=== PATIENT | female | born 1955 | race Caucasian/White ===

== ENCOUNTER 2018-04-09 07:29 | Inpatient (IN) | payer BC ==
[~2018-04-09 07:29] MED LIST: LIDOCAINE 2% (SDV) 5 ML INJ; PROPOFOL 200 MG INJ
[2018-04-09] MEDS: oxyCODONE (CR) 10 MG TAB [oxyCONTIN] PO (10:05)
[2018-04-09] MEDS: ACETAMINOPHEN 1000MG/100ML IV 100 ML IVPB (10:22)
[2018-04-09] MEDS: ONDANSETRON 4 MG INJ IV ×4 (10:23→23:14)
[2018-04-09] MEDS: DEXAMETHASONE 4 MG/ML 1 ML INJ IV (10:23)
[2018-04-09] MEDS ORDERED: NACL 0.9% 3 ML SYG IV (11:00)
[2018-04-09] MEDS ORDERED: oxyCODONE 5 MG TAB PO (11:00)
[2018-04-09] MEDS ORDERED: BISACODYL 10 MG SUPP PR (11:00)
[2018-04-09] MEDS ORDERED: SENNA/DOCUSATE NA (8.6MG/50MG) TAB PO (11:00)
[2018-04-09] MEDS ORDERED: NALOXONE (0.4 MG/ML) INJ IV (11:00)
[2018-04-09] MEDS ORDERED: BETHANECHOL 25 MG TAB PO (11:00)
[2018-04-09] MEDS ORDERED: MAGNESIUM HYDROXIDE 30ML CUP PO (11:00)
[2018-04-09] MEDS ORDERED: NA PHOSPHATE/BIPHOS 133 ML ENEMA PR (11:00)
[2018-04-09] MEDS ORDERED: DIPHENHYDRAMINE 50 MG INJ IV (11:00)
[2018-04-09] MEDS ORDERED: BUPIVACAINE 0.75%/DEXT (SPINAL) 2 ML INJ (11:16)
[2018-04-09] MEDS ORDERED: morphine SULFATE/PF (10 MG/10 ML) INJ (11:16)
[2018-04-09] MEDS: TRANEXAMIC ACID 1,000 MG in NS 100 ML INTRA-OP X1 IVPB ×3 (12:08→13:20)
[2018-04-09] MEDS: BACITRACIN 50000 UNITS INJ IRR (12:37)
[2018-04-09] MEDS: POLYMYXIN B 500000 UNIT INJ (12:37)
[2018-04-09] MEDS ORDERED: PHENYLephrine (100 MCG/ML) 5ML SYG (13:01)
[2018-04-09] MEDS ORDERED: ROCURONIUM 50 MG INJ (13:02)
[2018-04-09] MEDS ORDERED: SUGAMMADEX SODIUM 200 MG/2 ML VIAL IV (13:02)
[2018-04-09] MEDS ORDERED: CEFAZOLIN 1 GM INJ (13:02)
[2018-04-09] MEDS ORDERED: SUCCINYLCHOLINE CHLORIDE 100 MG/5 ML SYG IV (13:02)
[2018-04-09] MEDS ORDERED: HYDROmorphONE 1 MG/5 ML IV SYRINGE IV (13:30)
[2018-04-09] MEDS ORDERED: OXYCODONE/ACETAMINOPHEN (5/325) TAB PO (13:30)
[2018-04-09] MEDS ORDERED: ALBUTEROL 0.083% (NEB) 2.5 MG/3 ML AMP HHN (13:30)
[2018-04-09] MEDS ORDERED: FENTAnyl 50 MCG/ML VIAL IV ×2 (13:30)
[2018-04-09] MEDS: HIP PAIN COCKTAIL (CEFUROXIME) INJ ×2 (13:50→17:36)
[2018-04-09] MEDS ORDERED: FENTAnyl 50 MCG/ML VIAL ×3 (14:02→14:06)
[2018-04-09] MEDS ORDERED: HYDROmorphONE 2 MG/ML SYG ×3 (14:10→14:16)
[2018-04-09] MEDS: MEPERIDINE 25 MG INJ IV (14:32)
[2018-04-09] MEDS: DIPHENHYDRAMINE 50 MG INJ IV (14:33)
[2018-04-09] MEDS: HYDROmorphONE 1 MG/5 ML IV SYRINGE IV ×2 (14:40→15:27)
[2018-04-09] MEDS ORDERED: HYDROmorphONE 1 MG/ML SYG IV (15:00)
[2018-04-09] MEDS: ASPIRIN (EC) 325 MG TAB PO ×2 (15:13→23:23)
[2018-04-09] MEDS: DOCUSATE SODIUM 100 MG CAP PO (15:13)
[2018-04-09] MEDS: KETOROLAC 30 MG INJ IV (15:14)
[2018-04-09] MEDS: CEFAZOLIN 1 GM/50 ML (PMX) 50 ML IVPB ×2 (15:14→23:14)
[2018-04-09] MEDS: TRANEXAMIC ACID 1,000 MG in NS 100 ML PRE-OP X1 IVPB (16:00)
[2018-04-09] MEDS: LACTATED RINGER'S 1,000 ML IV* (16:00)
[2018-04-09] MEDS: oxyCODONE 5 MG TAB PO ×3 (16:40→23:24)
[2018-04-09] MEDS: LANSOPRAZOLE 30 MG CAP PO (17:36)
[2018-04-09] MEDS: SOD CHLORIDE 0.9% 1,000 ML IV ×2 (18:16→23:15)
[2018-04-09] MEDS: METHADONE 10 MG TAB PO (23:00)
[2018-04-10] MEDS: oxyCODONE 5 MG TAB PO ×2 (04:59→14:21)
[2018-04-10] MEDS: ONDANSETRON 4 MG INJ IV (05:00)
[2018-04-10 05:18] LABS: ADD MAN DIFF? NO
[2018-04-10 05:24] LABS: WHITE BLOOD COUNT 8.7 10^3/ul (4.8-10.8)
[2018-04-10 05:24] LABS: BASOPHILS % 0.1 % (0.0-2.0); HEMATOCRIT 25.5 % (37.0-47.0); HEMOGLOBIN 8.7 g/dl (12.0-16.0); LYMPHOCYTES # 2.1 10^3/ul (0.8-2.9); LYMPHOCYTES % 23.7 % (15.0-51.0); MEAN CORPUSCULAR HEMOGLOBIN 32.6 pg (29.0-33.0); MEAN CORPUSCULAR HGB CONC 34.1 g/dl (32.0-37.0); MEAN CORPUSCULAR VOLUME 95.5 fl (82.0-101.0); MONOCYTE # 1.2 10^3/ul (0.3-0.9); MONOCYTES % 13.3 % (0.0-11.0); NEUTROPHIL # 5.5 10^3/ul (1.6-7.5); NEUTROPHILS % 62.7 % (39.0-77.0); NUCLEATED RED BLOOD CELLS% 0.2 /100WBC (0.0-0.0); PLATELET COUNT 240 10^3/UL (140-415); RED BLOOD COUNT 2.67 10^6/ul (4.20-5.40); RED CELL DISTRIBUTION WIDTH 13.2 % (11.5-14.5)
[2018-04-10 05:48] LABS: PHOSPHORUS 3.1 mg/dl (2.5-4.9)
[2018-04-10 05:48] LABS: MAGNESIUM 1.8 mg/dl (1.7-2.5)
[2018-04-10 05:49] LABS: ANION GAP 10 (8-16); BLOOD UREA NITROGEN 17 mg/dl (7-20); CALCIUM 7.5 mg/dl (8.4-10.2); CARBON DIOXIDE 24 mmol/L (21-31); CHLORIDE 110 mmol/L (97-110); CREATININE 0.56 mg/dl (0.44-1.00); GLUCOSE 122 mg/dl (70-220); POTASSIUM 4.2 mmol/L (3.5-5.1); SODIUM 140 mmol/L (135-144)
[2018-04-10] MEDS: CEFAZOLIN 1 GM/50 ML (PMX) 50 ML IVPB (06:28)
[2018-04-10] MEDS: PANTOPRAZOLE (EC) 40 MG TAB PO (06:28)
[2018-04-10] MEDS: SOD CHLORIDE 0.9% 1,000 ML IV (06:28)
[2018-04-10] MEDS ORDERED: LISINOPRIL 20 MG TAB PO (09:00)
[2018-04-10] MEDS ORDERED: [UNRECOGNIZED DRUG - REMARK] XX (09:30)
[2018-04-10] MEDS: DOCUSATE SODIUM 100 MG CAP PO ×2 (09:37→21:20)
[2018-04-10] MEDS: FERROUS FUMARATE (SR) TAB PO ×2 (09:37→21:20)
[2018-04-10] MEDS: CELECOXIB 200 MG CAP PO ×2 (09:37→21:20)
[2018-04-10] MEDS: METHADONE 10 MG TAB PO ×2 (09:38→21:21)
[2018-04-10] MEDS: ASPIRIN (EC) 325 MG TAB PO ×2 (09:38→21:20)
[2018-04-10] MEDS: HYDROmorphONE 2 MG/ML SYG IV ×2 (15:24→19:14)
[2018-04-11] MEDS: SOD CHLORIDE 0.9% 1,000 ML IV ×2 (00:15→12:45)
[2018-04-11] MEDS: HYDROmorphONE 2 MG/ML SYG IV ×2 (00:21→04:20)
[2018-04-11] MEDS: PANTOPRAZOLE (EC) 40 MG TAB PO (04:23)
[2018-04-11 05:35] LABS: ADD MAN DIFF? NO
[2018-04-11 05:39] LABS: BASOPHILS % 0.4 % (0.0-2.0); EOSINOPHILS # 0.2 10^3/ul (0.0-0.5); EOSINOPHILS % 2.5 % (0.0-7.0); HEMATOCRIT 23.5 % (37.0-47.0); HEMOGLOBIN 7.8 g/dl (12.0-16.0); LYMPHOCYTES # 3.4 10^3/ul (0.8-2.9); LYMPHOCYTES % 40.7 % (15.0-51.0); MEAN CORPUSCULAR HEMOGLOBIN 32.9 pg (29.0-33.0); MEAN CORPUSCULAR HGB CONC 33.2 g/dl (32.0-37.0); MEAN CORPUSCULAR VOLUME 99.2 fl (82.0-101.0); MEAN PLATELET VOLUME 10.4 fl (7.4-10.4); MONOCYTES % 11.9 % (0.0-11.0); NEUTROPHIL # 3.6 10^3/ul (1.6-7.5); NEUTROPHILS % 44.1 % (39.0-77.0); PLATELET COUNT 217 10^3/UL (140-415); RED BLOOD COUNT 2.37 10^6/ul (4.20-5.40); RED CELL DISTRIBUTION WIDTH 13.5 % (11.5-14.5)
[2018-04-11 05:39] LABS: WHITE BLOOD COUNT 8.3 10^3/ul (4.8-10.8)
[2018-04-11 06:21] LABS: ANION GAP 7 (8-16); BLOOD UREA NITROGEN 17 mg/dl (7-20); CALCIUM 8.1 mg/dl (8.4-10.2); CARBON DIOXIDE 28 mmol/L (21-31); CHLORIDE 109 mmol/L (97-110); CREATININE 0.68 mg/dl (0.44-1.00); GLUCOSE 98 mg/dl (70-220); POTASSIUM 4.1 mmol/L (3.5-5.1); SODIUM 140 mmol/L (135-144)
[2018-04-11] MEDS: FERROUS FUMARATE (SR) TAB PO (09:18)
[2018-04-11] MEDS: CELECOXIB 200 MG CAP PO (09:18)
[2018-04-11] MEDS: ASPIRIN (EC) 325 MG TAB PO (09:18)
[2018-04-11] MEDS: METHADONE 10 MG TAB PO (09:19)
[2018-04-11] MEDS: HYDROmorphONE 1 MG/ML SYG IV ×2 (09:22→16:01)
[2018-04-11] MEDS: DOCUSATE SODIUM 100 MG CAP PO (13:40)
== END 2018-04-11 18:10 | disposition home health service (06) | DRG 470 ==
LOC: REC 07:29 → MS1 15:55
PROC: 0SRB04A Replacement of Left Hip Joint with Ceramic on Polyethylene Synthetic Substitute, Uncemented, Open Approach (ICD-10-PCS; principal; 2018-04-09 11:00)
DX: M16.12 Unilateral primary osteoarthritis, left hip (principal); F11.20 Opioid dependence, uncomplicated; I10 Essential (primary) hypertension; E66.9 Obesity, unspecified; Z68.29 Body mass index [BMI] 29.0-29.9, adult; G89.29 Other chronic pain
CPT/HCPCS: 72170; 73500; 73530; 80048; 83735; 84100; 85025; 86850; 86900; 86901; 86920; 87081; 87086; 88304; 88311; 97110; 97116; 97162; 97167; 97530; 97535

== ENCOUNTER 2018-08-13 05:39 | Inpatient (IN) | payer BC ==
[2018-08-13] MEDS: ONDANSETRON 4 MG INJ IV ×4 (06:30→20:21)
[2018-08-13] MEDS: DEXAMETHASONE 4 MG/ML 1 ML INJ IV (06:30)
[2018-08-13] MEDS: LACTATED RINGER'S 1,000 ML IV* (06:31)
[2018-08-13] MEDS: ACETAMINOPHEN 500 MG TAB PO (06:31)
[2018-08-13] MEDS: oxyCODONE (CR) 10 MG TAB [oxyCONTIN] PO (06:31)
[2018-08-13] MEDS: LANSOPRAZOLE 30 MG CAP PO (06:31)
[2018-08-13] MEDS ORDERED: LIDOCAINE 2% (SDV) 5 ML INJ (07:00)
[2018-08-13] MEDS ORDERED: DESFLURANE 15 MIN (07:00)
[2018-08-13] MEDS ORDERED: BUPIVACAINE 0.75%/DEXT (SPINAL) 2 ML INJ (07:00)
[2018-08-13] MEDS ORDERED: PROPOFOL 20 ML (07:14)
[2018-08-13] MEDS ORDERED: GLYCOPYRROLATE 0.4 MG INJ (07:14)
[2018-08-13] MEDS ORDERED: CEFAZOLIN 1 GM INJ (07:14)
[2018-08-13] MEDS ORDERED: ROCURONIUM 50 MG INJ (07:14)
[2018-08-13] MEDS ORDERED: NEOSTIGMINE 3 MG/3 ML SYRINGE (07:14)
[2018-08-13] MEDS ORDERED: DEXAMETHASONE 4 MG/ML 1 ML INJ (07:18)
[2018-08-13] MEDS ORDERED: FENTAnyl 50 MCG/ML VIAL (07:18)
[2018-08-13] MEDS ORDERED: ONDANSETRON 4 MG INJ (07:18)
[2018-08-13] MEDS ORDERED: MIDAZOLAM 1 MG/ML 2 ML INJ (07:18)
[2018-08-13] MEDS ORDERED: morphine SULFATE/PF (10 MG/10 ML) INJ (07:20)
[2018-08-13] MEDS ORDERED: EPINEPHrine 1 MG INJ (07:21)
[2018-08-13] MEDS ORDERED: NA PHOSPHATE/BIPHOS 133 ML ENEMA PR (07:30)
[2018-08-13] MEDS ORDERED: BETHANECHOL 25 MG TAB PO (07:30)
[2018-08-13] MEDS ORDERED: DIPHENHYDRAMINE 50 MG INJ IV (07:30)
[2018-08-13] MEDS ORDERED: SENNA/DOCUSATE NA (8.6MG/50MG) TAB PO (07:30)
[2018-08-13] MEDS ORDERED: BISACODYL 10 MG SUPP PR (07:30)
[2018-08-13] MEDS: TRANEXAMIC ACID 1,000 MG in NS 100 ML PRE-OP X1 IVPB (07:30)
[2018-08-13] MEDS ORDERED: oxyCODONE 5 MG TAB PO ×2 (07:30)
[2018-08-13] MEDS ORDERED: NALOXONE (0.4 MG/ML) INJ IV (07:30)
[2018-08-13] MEDS ORDERED: NACL 0.9% 3 ML SYG IV ×2 (07:30→12:30)
[2018-08-13] MEDS: CEFAZOLIN 1 GM/50 ML (PMX) 50 ML IVPB ×3 (07:30→18:54)
[2018-08-13] MEDS ORDERED: MAGNESIUM HYDROXIDE 30ML CUP PO (07:30)
[2018-08-13] MEDS: TRANEXAMIC ACID 1,000 MG in NS 100 ML INTRA-OP X1 IVPB (08:30)
[2018-08-13] MEDS: POLYMYXIN B 500000 UNIT INJ (09:23)
[2018-08-13] MEDS: BACITRACIN 50000 UNITS INJ (09:23)
[2018-08-13] MEDS: DOCUSATE SODIUM 100 MG CAP PO (10:32)
[2018-08-13] MEDS: ASPIRIN 81 MG TAB PO ×2 (10:32→20:19)
[2018-08-13] MEDS: SOD CHLORIDE 0.9% 1,000 ML IV ×3 (11:10→20:18)
[2018-08-13] MEDS: oxyCODONE 5 MG TAB PO ×3 (11:33→20:19)
[2018-08-13] MEDS ORDERED: ACETAMINOPHEN 325 MG TAB PO (12:30)
[2018-08-13] MEDS ORDERED: ONDANSETRON 4 MG INJ IV (12:30)
[2018-08-13] MEDS ORDERED: DOCUSATE SODIUM 100 MG CAP PO (12:30)
[2018-08-13] MEDS ORDERED: HIP PAIN COCKTAIL (CEFUROXIME) INJ (13:00)
[2018-08-13] MEDS: GABAPENTIN 400 MG CAP PO (20:19)
[2018-08-14] MEDS: oxyCODONE 5 MG TAB PO ×3 (01:14→09:11)
[2018-08-14] MEDS: CEFAZOLIN 1 GM/50 ML (PMX) 50 ML IVPB (02:48)
[2018-08-14] MEDS: ONDANSETRON 4 MG INJ IV (04:30)
[2018-08-14 05:17] LABS: ADD MAN DIFF? NO
[2018-08-14 05:23] LABS: BASOPHILS % 0.1 % (0.0-2.0); HEMATOCRIT 26.7 % (37.0-47.0); HEMOGLOBIN 8.5 g/dl (12.0-16.0); LYMPHOCYTES # 1.3 10^3/ul (0.8-2.9); LYMPHOCYTES % 12.8 % (15.0-51.0); MEAN CORPUSCULAR HEMOGLOBIN 28.1 pg (29.0-33.0); MEAN CORPUSCULAR HGB CONC 31.8 g/dl (32.0-37.0); MEAN CORPUSCULAR VOLUME 88.4 fl (82.0-101.0); MEAN PLATELET VOLUME 10.4 fl (7.4-10.4); MONOCYTE # 1.3 10^3/ul (0.3-0.9); MONOCYTES % 12.7 % (0.0-11.0); NEUTROPHIL # 7.7 10^3/ul (1.6-7.5); NEUTROPHILS % 73.9 % (39.0-77.0); PLATELET COUNT 234 10^3/UL (140-415); RED BLOOD COUNT 3.02 10^6/ul (4.20-5.40); RED CELL DISTRIBUTION WIDTH 17.1 % (11.5-14.5)
[2018-08-14 05:23] LABS: WHITE BLOOD COUNT 10.4 10^3/ul (4.8-10.8)
[2018-08-14 05:39] LABS: ALANINE AMINOTRANSFERASE 27 IU/L (13-69); ALBUMIN 3.1 g/dl (3.3-4.9); ALBUMIN/GLOBULIN RATIO 1.24; ALKALINE PHOSPHATASE 82 IU/L (42-121); ANION GAP 7 (5-13); ASPARTATE AMINO TRANSFERASE 49 IU/L (15-46); BILIRUBIN,INDIRECT 0.1 mg/dl (0-1.1); BILIRUBIN,TOTAL 0.1 mg/dl (0.2-1.3); BLOOD UREA NITROGEN 10 mg/dl (7-20); CALCIUM 8.5 mg/dl (8.4-10.2); CARBON DIOXIDE 31 mmol/L (21-31); CHLORIDE 104 mmol/L (97-110); CHOL/HDL RATIO 1.7 RATIO; CHOLESTEROL 122 mg/dl (100-200); CREATININE 0.62 mg/dl (0.44-1.00); Estimated GFR > 60 mL/min (>60); GLUCOSE 128 mg/dl (70-220); HDL CHOLESTEROL 68 mg/dl (35-98); LDL CHOLESTEROL,CALCULATED 49 mg/dl; PHOSPHORUS 2.8 mg/dl (2.5-4.9); POTASSIUM 4.3 mmol/L (3.5-5.1); SODIUM 142 mmol/L (135-144); TOTAL PROTEIN 5.6 g/dl (6.1-8.1); TRIGLYCERIDES 27 mg/dl (0-149)
[2018-08-14] MEDS: PANTOPRAZOLE (EC) 40 MG TAB PO (05:55)
[2018-08-14 06:43] LABS: HEMOGLOBIN A1C 6.2 % (0-5.9)
[2018-08-14] MEDS ORDERED: DOCUSATE SODIUM 100 MG CAP PO (09:00)
[2018-08-14] MEDS: GABAPENTIN 400 MG CAP PO (09:09)
[2018-08-14] MEDS: ASPIRIN 81 MG TAB PO (09:09)
[2018-08-14] MEDS: CELECOXIB 200 MG CAP PO (09:09)
[2018-08-14] MEDS: FERROUS FUMARATE (SR) TAB PO (09:09)
[2018-08-14 11:38] LABS: IRON 32 ug/dl (35-150)
[2018-08-14 11:47] LABS: % IRON SATURATION 8 % SAT (22-52); TOTAL IRON BINDING CAPACITY 380 ug/dl (241-421)
[2018-08-14 12:15] LABS: FERRITIN 11.8 ng/ml (11.1-264.0)
== END 2018-08-14 12:05 | disposition home health service (06) | DRG 470 ==
LOC: REC 05:39 → MS1 10:52
PROC: 0SR904A Replacement of Right Hip Joint with Ceramic on Polyethylene Synthetic Substitute, Uncemented, Open Approach (ICD-10-PCS; principal; 2018-08-13 07:23)
DX: M16.11 Unilateral primary osteoarthritis, right hip (principal); F11.20 Opioid dependence, uncomplicated; E88.81 Metabolic syndrome and other insulin resistance; B18.2 Chronic viral hepatitis C; F17.210 Nicotine dependence, cigarettes, uncomplicated; D50.9 Iron deficiency anemia, unspecified; E66.9 Obesity, unspecified; Z68.30 Body mass index [BMI] 30.0-30.9, adult; Z96.642 Presence of left artificial hip joint; I10 Essential (primary) hypertension; J44.9 Chronic obstructive pulmonary disease, unspecified; G89.18 Other acute postprocedural pain; Z79.82 Long term (current) use of aspirin; Z85.820 Personal history of malignant melanoma of skin
CPT/HCPCS: 72170; 73500; 73530; 80053; 80061; 82728; 83036; 83540; 83735; 84100; 85025; 86850; 86900; 86901; 87081; 88304; 88311; 97116; 97161; 97166; 97530